=== PATIENT | female | born 1960 | race Caucasian/White ===

== ENCOUNTER → 2017-04-18 20:12 | Outpatient (CLI) | payer BC ==
[2015-04-27 05:51] VITALS: BMI 26.3
[~2017-04-18 20:12] MED LIST: ASPIRIN325 MG PO; EFFEXOR XR75 MG PO; HYDROCODONE-APA1 TAB PO
== END | disposition home or self-care (01) ==
LOC: D.MAMMO 02-17 13:00
DX: Z12.31 Encounter for screening mammogram for malignant neoplasm of breast (principal)

== ENCOUNTER → 2017-05-20 18:11 | Outpatient (CLI) | payer MEDICAID ==
[2015-04-27 05:51] VITALS: BMI 26.3
== END | disposition home or self-care (01) ==
LOC: D.MAMMO 08:30
DX: R92.8 Other abnormal and inconclusive findings on diagnostic imaging of breast (principal)